=== PATIENT | male | born 2000 | race Two or more races ===

== ENCOUNTER 2024-02-14 16:58 | Emergency (ER) | payer OTHER ==
[~2024-02-14] VITALS: Ht 165.1 cm; Wt 77.8 kg
[2024-02-14] MEDS ORDERED: GENT0.3S10 EACHEYE (19:39)
[2024-02-14] MEDS ORDERED: DOLU50TA OR (19:39)
[2024-02-14] MEDS ORDERED: EMTRTAB7 PO (19:39)
[2024-02-14 19:42] LABS: Basophils # (auto) 0.1 10 ^3/uL (0-0.2); Eosinophils # (auto) 0.1 10 ^3/uL (0-0.8); Eosinophils % (auto) 1.1 % (0.0-7.0); Hematocrit 41.2 % (41.0-53.0); Hemoglobin 13.7 g/dL (13.5-17.5); Lymphocytes # (auto) 1.8 10 ^3/uL (0.4-5.4); Lymphocytes % (auto) 25.5 % (10.0-50.0); Mean Corpuscular Hemoglobin 28.8 pg (28.0-32.0); Mean Corpuscular Hgb Conc. 33.2 g/dL (32.0-36.0); Mean Corpuscular Volume 86.7 fL (80.0-100.0); Monocytes # (auto) 0.4 10 ^3/uL (0-1.3); Monocytes % (auto) 5.3 % (0.0-12.0); Neutrophils # (auto) 4.8 10 ^3/uL (1.6-8.6); Neutrophils % (auto) 67.1 % (37.0-80.0); Nucleated Red Blood Cells % 0.1 %; Red Blood Cells 4.75 10^6/uL (4.5-5.90); Red Cell Distribution Width 13.1 % (11.8-14.3); White Blood Cell 7.2 10^3/uL (4.4-10.8)
[2024-02-14 20:11] LABS: Alanine Aminotransferase 17 U/L (7-40); Alkaline Phosphatase 74 U/L (46-116); Anion Gap 5 (5-15); Aspartate Aminotransferase 11 U/L (13-40); BUN/Creatinine Ratio 9.2 (10.0-20.0); Blood Urea Nitrogen 12 mg/dL (9-23); Calcium 9.5 mg/dL (8.7-10.4); Carbon Dioxide 27 mmol/L (20-30); Chloride 100 mmol/L (98-107); Potassium 4.1 mmol/L (3.5-5.1); Sodium 132 mmol/L (136-145)
[2024-02-14 20:12] LABS: Bilirubin, Total 0.7 mg/dL (0.2-1.0); Total Protein 7.1 g/dL (5.7-8.2)
[2024-02-14 20:38] LABS: Glucose 438 mg/dL (74-106)
[2024-02-14 21:30] VITALS: BP 144/97; PULSE 98; RESP 16; O2SAT 100
[2024-02-17 08:57] LABS: Hepatitis B Surface Antibody Positive (Negative)
[2024-02-17 09:09] LABS: Hepatitis B Surface Antigen Negative (Negative)
== END 2024-02-14 22:35 | disposition home or self-care (01) ==
LOC: EDBD 16:58 → ER 16:58
DX: H10.33 Unspecified acute conjunctivitis, bilateral (principal); E11.9 Type 2 diabetes mellitus without complications; Z77.21 Contact with and (suspected) exposure to potentially hazardous body fluids; Z20.6 Contact with and (suspected) exposure to human immunodeficiency virus [HIV]
CPT/HCPCS: 36415; 80053; 85025; 86703; 86706; 86803; 87340